=== PATIENT | male | born 1955 | race Caucasian/White ===

== ENCOUNTER 2018-07-20 06:53 | Day surgery (SDC) | payer OTHER ==
[2018-07-19 11:15] VITALS: BMI 47.5
--- NOTE | 2018-07-20 10:51 | OP ---
DATE OF PROCEDURE: 07/20/2018 PROCEDURE PERFORMED: Esophagogastroduodenoscopy with biopsy. INDICATION FOR PROCEDURE: Dysphagia. DESCRIPTION OF PROCEDURE: After the risks and benefits of the procedure were explained to the patient including risks of bleeding, infection, perforation, reactions to anesthesia, aspiration, and/or pain, informed consent was obtained. The patient was then taken to the endoscopy suite, where deep sedation was administered via propofol and anesthesia support. Once adequate sedation was achieved, the standard gastroscope was introduced into the mouth with intubation of the esophagus, stomach, and the proximal small intestine with the findings listed below. The patient tolerated the procedure well with no immediate perioperative complications. Upon completion of the procedure, all equipment was removed from the patient and he was transferred to Day Stay in satisfactory condition. FINDINGS: Esophagus: Normal-appearing mucosa was seen in the proximal, mid, and distal esophagus. There was no evidence of erosions, ulcerations, mass, lesions, or active/recent bleeding. There was also no evidence of stricture or stenosis formation that might contribute to his current dysphagia. Random biopsies were taken from both the proximal and distal esophagus for evaluation of the eosinophilic esophagitis and placed in separate jars. Stomach: Mild increased mucosal erythema was seen throughout the entire stomach; in places, assumed more of a mosaic type appearance, but did not have any associated erosions or ulcerations with it. Otherwise, the remainder of the stomach appeared normal within the gastric cardia, fundus, body, greater curvature, antrum, and incisura. Random biopsies were taken from the gastric body, incisura, and antrum for possible Helicobacter pylori status. Duodenum: Normal-appearing mucosa was seen in both the duodenal bulb and second portion of the duodenum. There was no evidence of erosions, ulcerations, mass, lesions, or active/recent bleeding. IMPRESSION: 1. Mildly increased mucosal erythema with patches of mosaic type appearance within the stomach consistent with nonspecific gastropathy with etiologies including Helicobacter pylori versus NSAID gastritis. 2. No etiologies for the patient's dysphagia were seen during examination today, status post biopsies for eosinophilic esophagitis. RECOMMENDATIONS: 1. Would continue standard anti-acid reflux precautions with lifestyle modification. 2. Would hold off on any PPI therapy for now until biopsy results are known. 3. We will follow up on the biopsy results. 4. Would have the patient follow up with his primary care physician for further management of increased nasal congestion that is most likely contributing to his dysphagia type symptoms. 5. Follow up in the GI Clinic for further evaluation with possible swallow study at that time. Job ID: [id number]
[2018-07-20] MEDS ORDERED: PROPOFOL 200 MG/20 ML VIAL ONE (16:46)
== END 2018-07-20 10:55 | disposition home or self-care (01) ==
LOC: SDC 06:53
PROVIDERS: ATTEND Internal Medicine
PROC: 0DB68ZX Excision of Stomach, Via Natural or Artificial Opening Endoscopic, Diagnostic (ICD-10-PCS; principal; 2018-07-20)
PROC: 0DB58ZX Excision of Esophagus, Via Natural or Artificial Opening Endoscopic, Diagnostic (ICD-10-PCS; principal; 2018-07-20)
DX: K29.50 Unspecified chronic gastritis without bleeding (principal); B96.81 Helicobacter pylori [H. pylori] as the cause of diseases classified elsewhere; K20.9 Esophagitis, unspecified; G47.30 Sleep apnea, unspecified; Z87.891 Personal history of nicotine dependence; Z79.899 Other long term (current) drug therapy
CPT/HCPCS: 88305; 88312; 88313; J2704